=== PATIENT | male | born 1955 | race Caucasian/White ===

== ENCOUNTER 2016-04-10 12:10 | Inpatient (IN) | payer MEDICARE, OTHER ==
[2016-04-10] VITALS (8 sets, daily range): BP systolic 114–137; BP diastolic 46–67; PULSE 68–108; RESP 17–24; O2SAT 93–100
[~2016-04-10] VITALS: Ht 170.2 cm; Wt 110.7 kg
[~2016-04-10 12:10] MED LIST: ALBU8.5H2 INHALATION; ALPR1TAB7 PO; ASPI81TA3 PO; ATOR80TA PO; BUPR-97 PO; CARB-89 PO; CEPH500C; CILO100T2 PO; FINA5TAB9 PO; FLUT12AE4 IH; FRSM80T PO; GABA-502 PO; INSU100V2 SUBQ; INSU100V7 SUBQ; ISOS30TA4 PO; METO25TA99 PO; NITR0.4T SL; OXYC-465 PO; SEVE800T7 PO; TERA5CAP6 PO; TICA90TA PO
--- NOTE | 2016-04-10 12:21 | ED.REPORT ---
HPI-Chest Pain 40 and Over Date of Service Apr 10, 2016 ED Provider: Anup Tan MD This is 61 year old male with a history of CHF, COPD, CAD, DM, hyperlipidemia, ESRD on hemodialysis, HTN, s/p cardiac stenting 8x presenting to the emergency department from his dialysis appointment due to substernal chest pain that began 2 hours ago. Pain radiates to R arm. Took 2 nitro which did not provide relief. Denies nausea, vomiting, lightheadedness, dizziness, dyspnea, or diaphoresis. Nursing Notes Stated Complaint: CHEST PAIN Chief Complaint: Dysrhythmia/Cardiac Nursing Notes Reviewed: Yes Allergies: Coded Allergies: insulin regular (Verified Allergy, Severe, ITCHING, RASH,SWELLING, ) petrolatum,white (Verified Allergy, Severe, RASH, 12/10/15) diphenhydramine (Verified Allergy, Mild, Agitation, 12/04/15) Latex, Natural Rubber (Verified Allergy, Unknown, 12/04/15) chocolate flavor (Verified Allergy, Unknown, 12/04/15) Chocolate - all chocolate soap (Verified Allergy, Unknown, 12/04/15) spironolactone (Verified Allergy, Unknown, 12/04/15) RADHA Inhibitors (Verified Adverse Reaction, Severe, Cough, 12/10/15) codeine (Verified Adverse Reaction, Severe, GI, 12/10/15) chlorhexidine (Verified Adverse Reaction, Intermediate, pt reported itching with chlorhexidine use, 12/04/15) clopidogrel (Verified Adverse Reaction, Unknown, Kidney Bleed?, 12/10/15) Scheduled Aspirin Chew (Aspirin Chew) 81 Mg Chew 81 MG PO DAILY Atorvastatin (Lipitor) 80 Mg Tablet 80 MG PO HS Bupropion ER (Wellbutrin XL) 150 Mg Tab.er.24h 150 MG PO BID Carbamazepine ER (Carbamazepine ER) 200 Mg Tablet 200 MG PO HS Fexofenadine (Fexofenadine) 180 Mg Tablet 180 MG PO DAILY Finasteride (Finasteride) 5 Mg Tablet 5 MG PO DAILY Fluticasone/Salmeterol (Advair Hfa 115-21 Mcg Inhaler) 12 Gm Hfa.aer.ad 2 PUFF IH BID Furosemide (Furosemide) 80 Mg Tab 160 MG PO BIDWM Gabapentin (Gabapentin) 300 Mg Capsule 600 MG PO DAILY Insulin Glargine (Lantus U100 Insulin Vial) 100 Unit/Ml Vial 45-60 UNIT SUBQ BID Isosorbide MN ER (Isosorbide MN ER) 60 Mg Tab.er.24h 60 MG PO QAM Metoprolol Succinate ER (Metoprolol Succinate ER) 25 Mg Tab.er.24h 25 MG PO BID Prasugrel HCl (Effient) 10 Mg Tablet 10 MG PO DAILY Sevelamer Carbonate (Renvela) 800 Mg Tablet 2,400-3,200 TAB PO TID With meals and with snack Tamsulosin ER (Tamsulosin ER) 0.4 Mg Cap.er.24h 0.4 MG PO DAILY Scheduled PRN Albuterol HFA (Proair HFA) 8.5 Gm Hfa.aer.ad 2 PUFFS INHALATION PRN For Shortness of Breath Alprazolam (Alprazolam) 1 Mg Tablet 1-2 MG PO prn PRN PRN For Anxiety take 1/2 hour before hemodialysis Insulin Glulisine (Apidra U100 Insulin Vial) 100 Unit/1 Ml Vial 30-45 UNIT SUBQ QID PRN PRN hyperglycemia Midodrine (Midodrine) 10 Mg Tablet 10 MG PO DIRECTED PRN PRN dialysis Nitroglycerin SL (Nitrostat) 0.4 Mg Tab.subl 0.4 MG SL Q5MIN PRN PRN For Chest Pain oxyCODONE-Acetaminophen 7.5-325 mg (oxyCODONE-Acetaminophen 7.5-325 mg) 1 Each Tablet 1 TAB PO Q4H PRN PRN For Pain General Time Seen by MD: 12:16 Chief Complaint Other Hx Obtained From: Patient Arrived By: Walk-in Sudden in Onset?: Yes Onset Occurred: Just prior to arrival Symptom Duration: Since onset Severity: Current: Mild Pertinent Negative: Pt denies other symptoms Recent Healthcare: No recent doctor visit, No recent hospitalization Similar Sx Previous: No Past Medical History Past Medical History Notes: Patient identified to have 4 vessel coronary disease and cardiac catheterization at [facility], referred to private [facility] for intervention, but felt to be too high risk, underwent medical therapy and patient requires multiple stents, records requested Past Medical History Nonhealing foot wound. ESRD on Hemodialysis (, , Thu). History of retroperitoneal hematoma. Obesity. Recurrent UTI. chronic venostasis changes BPH peripheral vascular disease anemia of chronic disease recurrent LLE cellulitis chronic lymphodemea scarring on bilateral LE secondary to bobby anxiety diabetic neuropathy, mephropathy, retinopathy Reports: COPD, Congestive heart failure, Coronary artery disease, Diabetes mellitus, Hyperlipidemia, Hypertension Past Surgical History Stenting in July 2015 at [facility] - pt reports 5x stents Right superficial femoral artery stenosis treated with balloon angioplasty and left external iliac stenosis treated with stenting April 2013 Left fistula placement Left toe amputation Smoking History Former Smoker Social History Alcohol Use: Denies alcohol use Drug Use: Denies drug use Other Social History: Good social support, , Local resident Occupation on full disability Ambulatory Status Independent Review of Systems Constitutional: Denies: Chills, Fever Respiratory: Denies: Shortness of breath Cardiovascular: Reports: Chest pain GI: Denies: Abdominal pain, Constipation, Diarrhea, Nausea, Vomiting Neurologic: Denies: Headache Complete sys rev & neg: except as marked. Physical Exam Initial Vital Signs Vital Signs (First) Date Time Temp Pulse Resp B/P Pulse Ox O2 Delivery O2 Flow Rate FiO2 04/10/16 12:11 36.9 108 18 114/58 Room Air 04/10/16 15:16 94 2 Initial VS: Reviewed Head / Eyes: Atraumatic, Normocephalic, PERRL ENT: Mucous membranes moist, Conjunctiva normal, No scleral icterus Neck: Supple, Non-tender, Full range of motion Extremities: Vascular intact, Neuro intact, No swelling, No tenderness Skin: Warm, Dry, No cyanosis Neurologic: Alert, Oriented, Nonfocal Psychiatric: Mood/affect normal, Behavior normal, Normal thought content General/Constitutional: Awake, Alert Respiratory / Chest: Breath sounds NL, Breath sounds = bilat, No respiratory distress, No rales, No rhonchi, No wheezing, No stridor, No chest tenderness Heart Rate / Rhythm: Positive: Irregular rhythm, Tachycardia Heart Sounds / Murmur: Positive: Murmur present... Abdomen: Soft, Non-tender, McBurney's non-tender, No guarding, No rebound, BS normoactive, No distention, No hernia, No palpable mass Interpretation & Diagnostics Lab Results Interpretation Result Diagram: 04/10/16 1300 04/10/16 1300 Test 04/10/16 13:00 White Blood Count 7.8th/mm3 (3.8-10.1) Red Blood Count 3.81mil/mm3 (4.40-5.80) Hemoglobin 12.2g/dL (13.8-17.2) Hematocrit 37.4% (41.0-50.0) Mean Corpuscular Volume 98.2fL (81-100) Mean Corpuscular Hemoglobin 32.0pg (27.0-35.0) Mean Corpuscular Hemoglobin Concent 32.6% (32.0-37.0) Red Cell Distribution Width 16.2% (12.3-15.4) Platelet Count 131bil/L (150-400) Neutrophils (%) (Auto) 76.1% (40-74) Lymphocytes (%) (Auto) 9.8% (14-46) Monocytes (%) (Auto) 11.9% (4-12) Eosinophils (%) (Auto) 1.5% (0-5) Basophils (%) (Auto) 0.4% (0-3) Prothrombin Time 11.0sec (8.1-12.5) Prothromb Time International Ratio 1.03ratio Activated Partial Thromboplast Time 30.5sec (22.8-33.0) Sodium Level 131mEq/L (134-144) Potassium Level 3.6mEq/L (3.5-5.2) Chloride Level 88mEq/L (97-108) Carbon Dioxide Level 30mmol/L (18-29) Blood Urea Nitrogen 24mg/dL (8-27) Creatinine 5.35mg/dL (0.76-1.27) Estimat Glomerular Filtration Rate 12mL/min (>59) Glucose Level 163mg/dL (60-99) Calcium Level 9.2mg/dL (8.5-10.1) Magnesium Level 1.9mg/dL (1.6-2.6) Total Bilirubin 0.5mg/dL (0.0-1.2) Aspartate Amino Transf (AST/SGOT) 54U/L (0-50) Alanine Aminotransferase (ALT/SGPT) 24U/L (0-44) Alkaline Phosphatase 139U/L (25-160) Total Creatine Kinase 167U/L (21-232) Creatine Kinase MB 12.4ng/mL (0.0-10.4) Creatine Kinase MB % 7.4% (0.0-5.0) Troponin T 3.43ug/L (0.0-0.011) Pro-B-Type Natriuretic Peptide 11986ig/mL (0-210) Total Protein 8.3g/dL (6.4-8.4) Albumin 4.0g/dL (3.4-5.0) Thyroid Stimulating Hormone (TSH) 1.980uIU/mL (0.450-4.500) Hold [place]rbano Top Tube Received (Received) ECG Interpretation ECG Interpretation: A-fib at a rate of 112, new ST depression in lead 1, unchanged from prior on 12/11/2015 Time: 12:28 Interpreted by: ED physician X-Ray Chest Interpretation Chest Xray Interpretation: IMPRESSION: Expiratory chest demonstrating no definite acute cardiopulmonary process. Dictated by: Ant MCCLAIN Interpreted: Joanna Gomez MD on 04/10/2016 at 14:36 Transcribed by: CHELSIE on 04/10/2016 at 14:36 Re-Eval/Medical Decision Med Decision/Clinical Course 61-year-old male long history of CAD, stage renal disease on dialysis presenting with sudden onset chest pain during dialysis. No other associated symptoms. He reports this feels like his OK. EKG showed questionable ST elevation in inferior lead 3 and with depressions in lateral leads. The depressions in the lateral leads are old. The inferior elevation is new. Cardiology Dr. Marc was consulted emergently recommended heparin drip. Troponins 3. Admitted for NSTEMI. Patient requests to be transferred to after admission where he was last cathed. Hospitalist is working on transfer. Time of Eval: 14:06 Re-Evaluation/Progress Note: Discussed lab and imaging results and need for admission, all questions addressed Consultation #1: Referral / Consult Name: Paolo Marc MD Consulted With: Cardiology Call Returned at: 14:28 Rod Welder: Will see patient Consultation #2: Referral / Consult Name: Mayur Cedeño MD Consulted With: Hospitalist Call Returned at: 15:02 Rod Welder: Accepts admit Counseled Regarding: Diagnosis, Lab results, Need for follow-up, Need for admission Discharge & Departure Primary Impression: NSTEMI (non-ST elevated myocardial infarction) Disposition: ADMITTED TO HOSPITAL Discharge Condition All VS Reviewed: Yes Condition: Stable Referrals: Ld Arroyo MD (PCP) Crit Care Except Billable Proc Time Spent: 30-74 minutes Services Performed: Patient management by me, Time spent at bedside, Reviewing test results, Reviewing imaging, Discussing patient care, Documentation in record, Time with fam/surrogate Scribe Attestation Portions of this note were transcribed by Jeannie Crook. I, Dr. Tan personally performed the history, physical exam and medical decision-making; I reviewed and confirmed the accuracy of the information in the transcribed note. Signed by: priya Wu. 04/10/2016, 15:00. Anup Tan MD Apr 10, 2016 12:21 JEANNIE CROOK Apr 10, 2016 12:27
[2016-04-10] MEDS ORDERED: MeTOProlol 1 mg/mL 5 mL Inj IVPUSH PRN (12:30)
[2016-04-10 13:13] LABS: BASOPHILS % (AUTO) 0.4 % (0-3); EOSINOPHILS % (AUTO) 1.5 % (0-5); MONOCYTES % (AUTO) 11.9 % (4-12); Mean Corpuscular Volume 98.2 fL (81-100); NEUTROPHILS % (AUTO) 76.1 % (40-74); Platelet Count 131 bil/L (150-400)
[2016-04-10 13:33] LABS: INR 1.03 ratio
[2016-04-10 13:51] LABS: Magnesium 1.9 mg/dL (1.6-2.6)
[2016-04-10 13:56] LABS: TROPONIN T 3.43 ug/L (0.0-0.011)
[2016-04-10] MEDS ORDERED: Heparin 5,000 Unit/mL Inj IVPUSH ONE (14:20)
[2016-04-10] MEDS ORDERED: Heparin 25K Unit/500mL 0.45 NS 25,000 UNIT in IV Premix 1 EACH IV ONE (14:20)
--- NOTE | 2016-04-10 14:37 | DRSVH ---
PROCEDURE: X-RAY CHEST ONE VIEW, PORTABLE ([id number]) INDICATIONS: chest pain TECHNIQUE: One view of the chest was acquired. COMPARISON: [facility], CR, XR CHEST 1VW (PORTABLE), 12/11/2015, 15:09. FINDINGS: Surgical changes and devices: None. Lungs and pleura: No pleural effusions or pneumothorax. Lungs are clear. Mediastinum: Mediastinal contours appear normal. Heart size is normal. Bones and chest wall: No suspicious bony lesions. Overlying soft tissues appear unremarkable. IMPRESSION: Expiratory chest demonstrating no definite acute cardiopulmonary process. Dictated by: Ant Diamond RRA Interpreted: Joanna Gomez MD on 04/10/2016 at 14:36 Transcribed by: CHELSIE on 04/10/2016 at 14:36 Approved by: Joanna Gomez MD, PhD on 04/10/2016 at 16:58
[2016-04-10] MEDS ORDERED: 0.9% Sodium Chloride 1,000 ML IV SCH (15:03)
[2016-04-10] MEDS ORDERED: Renal Dosing Per Pharmacist XX ONE (15:05)
[2016-04-10] MEDS ORDERED: Polyethylene Glycol (PEG) 17 Gm Powder PO PRN (15:05)
[2016-04-10] MEDS ORDERED: Ondansetron 2 mg/mL 2 mL Inj IVPUSH PRN (15:05)
[2016-04-10] MEDS ORDERED: Alum-Mag Hydrox-Simeth 30 mL Suspension PO PRN (15:05)
[2016-04-10] MEDS ORDERED: Senna-Docusate 8.6-50 mg Tablet PO PRN (15:05)
[2016-04-10] MEDS ORDERED: FRSM80T PO (15:36)
[2016-04-10] MEDS ORDERED: PRAS10TA5 PO (15:36)
[2016-04-10] MEDS ORDERED: ISOS60TA2 PO (15:38)
[2016-04-10] MEDS ORDERED: TAMS0.4C29 PO (15:42)
[2016-04-10] MEDS ORDERED: MIDO10TA PO (15:42)
[2016-04-10] MEDS ORDERED: FEXO-106 PO (15:45)
[2016-04-10] MEDS ORDERED: CHOL100045 PO (15:45)
[2016-04-10] MEDS ORDERED: DOCU-41 PO (15:45)
--- NOTE | 2016-04-10 16:43 | DRSVH ---
[facility] [address] [place] [address] Echocardiogram Report Name: WES JETT EStudy Date: 03/2016 Height: 67 in Hospital Exam Location: [facility] Weight: 241 lb Gender: Male BSA: 2.2 m2 : 1955 Age: 61 yrs BP: 114/58 mmHg Reason For Study: CHEST PAIN Ordering Physician: Performed By: Rigoberto Posey Interpretation Summary Left ventricular wall thickness is mildly increased. Left ventricular ejection fraction is estimated to be 35 +/- 5%. Sever inefrior, inferolateral and posterior hypokinesis. Compared to the prior exam, left ventricular function is significantly decreased. There is mild mitral regurgitation. There is mild aortic stenosis. The right ventricular systolic pressure is estimated at 36 mmHg assuming a right atrial pressure of 8 mm Hg. Procedure: A two-dimensional transthoracic echocardiogram with color flow and Doppler was performed. The study quality was technically adequate. Comparison is made with the echocardiogram of 12/04/15. A contrast injection of Definity was performed to improve assessment of LV function. The patient was in normal sinus rhythm during the exam. Left Ventricle: The left ventricle is normal in size. Left ventricular wall thickness is mildly increased. There is no thrombus. Left ventricular ejection fraction is estimated to be 35 +/- 5%. Compared to the prior exam, left ventricular function is significantly decreased. Sever inefrior, inferolateral and posterior hypokinesis. Right Ventricle: The right ventricle is normal in size and function. Atria: The left atrium is severely dilated. Right atrial size is normal. The interatrial septum is intact with no evidence for an atrial septal defect. Mitral Valve: There is moderate mitral annular calcification. The mitral valve leaflets are mildly calcified. The mitral valve chordae are thickened and/or calcified. The mitral papillary muscle appears thickened and/or calcified. The mean pressure gradient of the mitral valve is 3.3 mmHg. There is mild mitral regurgitation. Aortic Valve: The aortic valve is trileaflet. The aortic valve is mildly calcified. Leaflet mobility is mildly reduced. The peak aortic velocity is 2.2 m/sec. The aortic valve mean gradient is 10.4 mmHg. The calculated aortic valve area is 2.0 cm2. The aortic valve area is 1.6 centimeters squared by planimetry. There is mild aortic stenosis. No aortic regurgitation is present. Tricuspid Valve: The tricuspid valve is normal in structure and function. There is trace tricuspid regurgitation. The right ventricular systolic pressure is estimated at 36 mmHg assuming a right atrial pressure of 8 mm Hg. Pulmonic Valve: The pulmonic valve is not well seen, but is grossly normal. There is no pulmonic valvular regurgitation. Great Vessels: The aortic root is normal size. The dimensions of the ascending aorta are normal. The pulmonary artery is normal size. The IVC is dilated (diameter is greater than 2.1 cm) yet it collapses greater than 50% with a sniff. This suggests a right atrial pressure of 8 mm Hg. Pericardium/ Pleura There is no pericardial effusion. There is no pleural effusion. MMode/2D Measurements & Calculations LVIDd: 5.3 cm LA dimension RA long axis: 4.7 cm LVOT diam: 2.1 cm LVIDs: 4.3 cm AoV Openin.93 cm FS: 19.4 % LA A2 area RA area: 20.1 cm Ao root diam: 3.4 cm EPSS: 1.4 cm RA vol: 72.2 ml Aortic Jxn: 2.8 cm IVSd: 1.3 cm RA : 33.0 ml/m2 asc Aorta Diam: 3.1 cm LVPWd: 0.89 cmLA A4 area LA length (vol) LA vol: 113.0 ml LA vol index IVC diam: 2.5 cm EDV(MOD-sp2) ERIC (plan) LV bledsoe. diameter/BSA LV sys. diameter/BSA : 180.5 ml : 1.6 cm2 (cm/m^2): 2.4 (cm/m^2): 1.9 RVD1 (basal) RVD2 (mid) : 3.4 cm Doppler Measurements & Calculations Ao V2 max MV E max terry MV E/A: 1.4 TR max terry : 220.8 cm/sec : 139.8 cm/sec Med Peak E' Terry : 262.9 cm/sec Ao max PG MV A max terry TR max PG : 19.5 mmHg : 99.6 cm/sec E/E' med: 35.0 : 27.7 mmHg Ao mean PG MV P1/2t: 64.4 msec Lat Peak E' Terry PA V2 max : 10.4 mmHg MVA(VTI): 2.7 cm2 : 103.1 cm/sec LVOT Max Terry E/E' lat: 24.2 PA mean PG : 117.7 cm/sec E/e' average: 29.6 ERIC(I,D): 2.0 cm Pulm A Revs Dur PA Accel Time sev ratio : 0.12 sec MV A dur: 0.15 sec MV V2 mean MV P1/2t max terry Ao V2 mean LV V1 max PG : 85.3 cm/sec : 152.7 cm/sec MV mean PG MVA(P1/2t): 3.4 cm2 Ao V2 VTI: 44.0 cm LV V1 VTI ERIC(V,D): 1.8 cm2 : 25.3 cm MV V2 VTI MV dec time : 0.22 sec PA V2 mean ERIC indexed to BSA Pulm A Revs Dur - MV : 79.2 cm/sec (cm^2/m^2): 0.89 A Dur: -0.07 msec PA pr(Accel) : 24.1 mmHg Electronically signed by: Paolo Marc on Reading Physician:04/10/2016 04:43 PM
[2016-04-10] MEDS: Sodium Chloride LOK Flush 10 mL Syringe IVFLUSH SCH (17:09)
--- NOTE | 2016-04-10 18:03 | PCM.CHPCAR ---
Consult Subjective Date of service Apr 10, 2016 Date of admit Provider Requesting Consult Primary Care Physician Primary Care Provider: Ld Arroyo MD Chief Complaint Chest Pain History of Present Illness Mr. Coy is a 61 year old male with significant PMH of CAD (s/p 8 stent placements), NSTEMI, ESRD on HD, HR-amalfwl-kzswcqnyn, HTN, HLD COPD, and severe PAD. Presents to ED from dialysis where he was reportedly completing his HD treatment when he developed CP was initially located in the substernal region with radiation to right arm. Pt took nitro x 2 with no relief. Denies N/V , dizziness, SOB, or diaphoresis. Patient was admitted for the same in November 2015 and discharged without any cardiac intervention with medical management. Patient states he is scheduled additional intervention procedures via vascular surgery and cardiology continued where he is currently being seen and would like to be transferred to and not admitted to [facility]. Patient was last seen by [facility] cardiology on 02/08/2016, was continued on current medications included Effient and was still awaiting an appointment with you do vascular surgery. Of note patient had a STEMI in June 2015 and transferred to [facility] for CABG however declined as he was thought to be high risk. Patient currently has RALEIGH to left main, bare-metal stent to distal LAD, RALEIGH to mid LAD, RALEIGH to proximal LAD, balloon angioplasty to the ramus intermedius, balloon angioplasty of the left circumflex, RALEIGH to RCA. EKG showed ST segment depression with downsloping in anterior lateral leads which is suggestive of previous MD. Echo showed EF 35% which is significantly decreased from echo done 11/29/2015 EF of 55-60%. Overall left ventricular function significantly decreased from prior study. Patient also has severe inferior, inferior lateral posterior hypokinesis. A. fib. Past medical history: #CAD, multiple stents, NSTEMI #End-stage renal disease - dialysis #Peripheral vascular disease #COPD #Chronic anemia #Diabetes mellitus, diabetic nephropathy, retinopathy, neuropathy. #CHF #Hyperlipidemia #Hypertension Past Surgical History: #Multiple AP cardio coronary stents (see history of present illness above) #Left external iliac stenosis, stented April 2013 #Fistula left arm #Left toe amputation Family History: Father - age 44, his lung cancer, pulmonary embolism, blood clots. Mother -diabetes mellitus Sister - age 54, pulmonary embolism. Brother (younger) - age 22 CVA, complications of thrombotic disease. Social history: A history of tobacco abuse. , lives locally Unemployed secondary to permanent disability. Review of Systems Review of Systems REVIEW OF SYSTEMS Patient initially asleep at time of interview, somewhat somnolent and slow to answer questions secondary to recent morphine administration. Constitutional: Denies Chills, Fever Eyes: Denies visual changes, denies headache Cardiovascular: Denies current Chest Pain, denies irregular heart rate. Endorses shortness of breath on exertion, shortness of breath while lying flat and lower extremity edema. Respiratory: Denies Cough, Wheezing Gastrointestinal: Denies Abdominal Pain, Constipation, Diarrhea, Heartburn, Nausea, Vomiting PMH Past Medical History Nonhealing foot wound. ESRD on Hemodialysis (, , Thu). History of retroperitoneal hematoma. Obesity. Recurrent UTI. chronic venostasis changes BPH peripheral vascular disease anemia of chronic disease recurrent LLE cellulitis chronic lymphodemea scarring on bilateral LE secondary to bobby anxiety diabetic neuropathy, mephropathy, retinopathy Reports: COPD, Congestive heart failure, Coronary artery disease, Diabetes mellitus, Hyperlipidemia, Hypertension Past Surgical History Stenting in July 2015 at [facility] - pt reports 8x stents Right superficial femoral artery stenosis treated with balloon angioplasty and left external iliac stenosis treated with stenting April 2013 Left fistula placement Left toe amputation Scheduled Aspirin Chew (Aspirin Chew) 81 Mg Chew 81 MG PO DAILY (Reported) Atorvastatin (Lipitor) 80 Mg Tablet 80 MG PO HS (Reported) Bupropion ER (Wellbutrin XL) 150 Mg Tab.er.24h 150 MG PO BID (Reported) Carbamazepine ER (Carbamazepine ER) 200 Mg Tablet 200 MG PO HS (Reported) Fexofenadine (Fexofenadine) 180 Mg Tablet 180 MG PO DAILY (Reported) Finasteride (Finasteride) 5 Mg Tablet 5 MG PO DAILY (Reported) Fluticasone/Salmeterol (Advair Hfa 115-21 Mcg Inhaler) 12 Gm Hfa.aer.ad 2 PUFF IH BID (Reported) Furosemide (Furosemide) 80 Mg Tab 160 MG PO BIDWM (Reported) Gabapentin (Gabapentin) 300 Mg Capsule 600 MG PO DAILY (Reported) Insulin Glargine (Lantus U100 Insulin Vial) 100 Unit/Ml Vial 45-60 UNIT SUBQ BID (Reported) Isosorbide MN ER (Isosorbide MN ER) 60 Mg Tab.er.24h 60 MG PO QAM (Reported) Metoprolol Succinate ER (Metoprolol Succinate ER) 25 Mg Tab.er.24h 25 MG PO BID (Reported) Prasugrel HCl (Effient) 10 Mg Tablet 10 MG PO DAILY (Reported) Sevelamer Carbonate (Renvela) 800 Mg Tablet 2,400-3,200 TAB PO TID (Reported) With meals and with snack Tamsulosin ER (Tamsulosin ER) 0.4 Mg Cap.er.24h 0.4 MG PO DAILY (Reported) Scheduled PRN Albuterol HFA (Proair HFA) 8.5 Gm Hfa.aer.ad 2 PUFFS INHALATION PRN For Shortness of Breath (Reported) Alprazolam (Alprazolam) 1 Mg Tablet 1-2 MG PO prn PRN PRN For Anxiety (Reported ) take 1/2 hour before hemodialysis Betamethasone Dipropionate (Betamethasone Dipropionate) 15 Gm Cream..g. 1 APPLIC TOPICAL PRN For Itching (Reported) Clobetasol Propionate (Clobetasol Propionate) 15 Gm Cream..g. 1 APPLIC TOPICAL PRN For Itching (Reported) Insulin Glulisine (Apidra U100 Insulin Vial) 100 Unit/1 Ml Vial 30-45 UNIT SUBQ QID PRN PRN hyperglycemia (Reported) Midodrine (Midodrine) 10 Mg Tablet 10 MG PO DIRECTED PRN PRN dialysis ( Reported) Nitroglycerin SL (Nitrostat) 0.4 Mg Tab.subl 0.4 MG SL Q5MIN PRN PRN For Chest Pain (Reported) oxyCODONE-Acetaminophen 7.5-325 mg (oxyCODONE-Acetaminophen 7.5-325 mg) 1 Each Tablet 1 TAB PO Q4H PRN PRN For Pain (Reported) Discontinued Medications Cephalexin (Cephalexin) 500 Mg Capsule (Reported) Cholecalciferol (Vitamin D3) (Vitamin D) 1,000 Unit Capsule 1,000 UNIT PO DAILY (Reported) Cilostazol (Cilostazol) 100 Mg Tablet 50 MG PO BID Docusate Sodium (Colace) 100 Mg Capsule 100 MG PO DAILY (Reported) Isosorbide MN ER (Isosorbide MN ER) 30 Mg Tab.er.24h 30 MG PO 0730 Terazosin (Terazosin) 5 Mg Capsule 5 MG PO DAILY (Reported) Ticagrelor (Brilinta) 90 Mg Tablet 90 MG PO BID (Reported) Current Inpatient Medications Current Medications Metoprolol Tartrate 5 mg Q5MIN PRN IVPUSH Last administered on 04/10/16t 13:05; Admin Dose 5 MG; Start 04/10/16 at 12:30 Morphine Sulfate UP TO 10 mg IV in a 4 h... Q15MIN PRN IVPUSH; Start 04/10/16 at 12:30; Stop 04/11/16 at 12:31 Sodium Chloride 10 ml 10 ml CLAUDIA IVFLUSH; Start 04/10/16 at 16:30; Status UNV Sodium Chloride 1,000 ml @ 80 mls/hr [id number] IV; Start 04/10/16 at 15:03; Status UNV Aspirin 81 mg DAILY PO; Start 04/11/16 at 08:30; Status UNV Metoprolol Tartrate 25 mg Q6 PO; Start 04/10/16 at 20:30; Status UNV Al Hydrox/Mg Hydrox/Simethicone 30 ml Q6 PRN PO; Start 04/10/16 at 15:05; Status UNV Ondansetron HCl 4-8 mg prn nausea Q4 PRN IVPUSH; Start 04/10/16 at 15:05; Status UNV Senna 1 tablet BID PRN PO; Start 04/10/16 at 15:05; Status UNV Polyethylene Glycol 17 gm DAILY PRN PO; Start 04/10/16 at 15:05; Status UNV Acetaminophen 325 mg Q6 PRN PO; Start 04/10/16 at 15:05; Status UNV Nitroglycerin 0.4 mg Q5MIN PRN SL; Start 04/10/16 at 15:05; Status UNV Morphine Sulfate 1-5 mg prn pain not relie... Q5M PRN IVPUSH; Start 04/10/16 at 15:05; Status UNV Allergies: Coded Allergies: insulin regular (Verified Allergy, Severe, ITCHING, RASH,SWELLING, ) petrolatum,white (Verified Allergy, Severe, RASH, 12/10/15) diphenhydramine (Verified Allergy, Mild, Agitation, 12/04/15) Latex, Natural Rubber (Verified Allergy, Unknown, 12/04/15) chocolate flavor (Verified Allergy, Unknown, 12/04/15) Chocolate - all chocolate soap (Verified Allergy, Unknown, 12/04/15) spironolactone (Verified Allergy, Unknown, 12/04/15) RADHA Inhibitors (Verified Adverse Reaction, Severe, Cough, 12/10/15) codeine (Verified Adverse Reaction, Severe, GI, 12/10/15) chlorhexidine (Verified Adverse Reaction, Intermediate, pt reported itching with chlorhexidine use, 12/04/15) clopidogrel (Verified Adverse Reaction, Unknown, Kidney Bleed?, 12/10/15) Social History Hx Alcohol Use: NoHx Substance Use: NoHx Tobacco Use: Yes (used to smoke 2- 3pk/d, for 20yrs, quit ) Smoking Status: Former Smoker Exam Vital Signs Vital Sign - Last Date Time Temp Pulse Resp B/P Pulse Ox O2 Delivery O2 Flow Rate FiO2 04/10/16 15:16 75 17 115/46 94 Nasal Cannula 2 04/10/16 12:11 36.9 Objective General: Obese male laying in bed in no apparent distress, asleep at the time of interview, arousable to voice but very somnolent. HEENT: Normocephalic, atraumatic. External ears without defect. Pupils equal, round, and reactive to light and accommodation. Neck: No jugular venous distension, though difficult to appreciate secondary to body habitus. Cardiovascular: Regular rate and rhythm with no murmurs appreciate though difficult to appreciate secondary to ER background noise and body habitus. Pulmonary: Clear to auscultation bilaterally with no appreciable crackles, wheezes, or rhonchi. Normal respiratory effort with no use of accessory muscles. Abdomen: Soft, nontender, obese. Extremities: Marked edema in lower extremities bilaterally. Bilateral lower extremities with compression stockings though able to visualize poor circulation with pitting edema diffusely erythema mottled and cyanotic skin, bandages on bilateral feet. Neurological: Cranial nerves grossly intact. Psychiatric: Patient somnolent, arousable to voice. Able to answer questions appropriately though slow to respond. Lab and Diagnostics Result Diagram: 04/10/16 1300 04/10/16 1300 X-Rays, CTs and MRIs X-RAY CHEST ONE VIEW, PORTABLE IMPRESSION: Expiratory chest demonstrating no definite acute cardiopulmonary process. Additional Diagnostics: Echocardiogram: Interpretation Summary Left ventricular wall thickness is mildly increased. Left ventricular ejection fraction is estimated to be 35 +/- 5%. Sever inefrior, inferolateral and posterior hypokinesis. Compared to the prior exam, left ventricular function is significantly decreased. There is mild mitral regurgitation. There is mild aortic stenosis. The right ventricular systolic pressure is estimated at 36 mmHg assuming a right atrial pressure of 8 mm Hg. Assessment & Plan Assessment # NSTEMI, present on admission, ongoing. Patient has diagnosed severe coronary artery disease with multiple stent placements, with history of bilateral femoral artery occlusion which raises concern about vascular access for cardiac catheterization. Initial troponin in ED 3.43 with history of chronically elevated troponin most likely due to long-standing ischemic heart disease, CK- MB 12.4 and CK-MB% 7.4. EKG showed ST depression in anterolateral leads, no ST elevation, atrial fibrillation. Echo showed severely reduced left ventricular function. In ED patient received 300 mg Plavix, heparin, nitroglycerin and morphine - Continue medical management with cardiac heparin protocol, metoprolol 25 mg every 6, Prasugrel 10 mg daily, aspirin 81 mg daily - Patient indicated desire to transfer to [facility] for continued treatment as this is where he is followed - Consider ultrasound of the abdominal iliac vessels and lower extremities to determine the severity of his peripheral artery disease and possibility of achieving vascular access. - Continue to monitor CK-MB every 6 hours # CHF, systolic dysfunction. - Echo as above. - Continue to monitor fluid volume status, oxygenation - Continue to monitor CBC, consider ABGs # ESRD on dialysis, chronic. He reportedly receives dialysis Thursday. Prior to admission patient is states he did complete his dialysis treatment today. - Consider nephrology consult - Continue monitor electrolytes #. Diabetes mellitus, chronic. Presumed stable A1c pending - Home insulin + correctional scale utilized #. Hypertension, chronic. Presumed stable. Home meds include isosorbide mononitrate, furosemide - Patient's last vital signs 115/54 pulse rate 60 - Metoprolol as above - Consider restarting home meds based on hemodynamic and fluid status # Paroxysmal atrial fibrillation, chronicity unknown. Presumed stable -Telemetry - Metoprol as above # Peripheral artery disease - Lower extremity ultrasound as above # COPD, presumed stable - Duonebs QIDWA - Accunebs q2h prn Attending Statement Pt. seen and d/w resident. Complex CAD and PAD. Patient wishes to be transferred to [facility]. Medical team is organizing that. ZENON TILLMAN DO Apr 10, 2016 16:37 Paolo Marc MD Apr 11, 2016 16:42
--- NOTE | 2016-04-10 18:07 | PCM.HPMED ---
Subjective Date of Service Apr 10, 2016 Primary Provider: Admitting Physician: Mayur Cedeño MD Primary Care Physician: Ld Arroyo MD Attending Physician: Mayur Cedeño MD Chief Complaint: Chest Pain History of Present Illness: 61 year old male with a history of CHF, COPD, CAD, DM, hyperlipidemia, ESRD on hemodialysis, HTN, s/p cardiac stenting 8x presenting to the emergency department from his dialysis appointment due to substernal chest pain that began 2 hours ago. Pain radiates to R arm. Took 2 nitro which did not provide relief. Denies nausea, vomiting, lightheadedness, dizziness, dyspnea, or diaphoresis. Patient tells me that he started having some symptoms last night took a couple nitroglycerin. He took a couple more nitroglycerin this morning before he went to dialysis and felt a little bit better and went to dialysis then during dialysis he developed further symptoms. He states that it is retrosternal does not radiating were but similar to prior episodes. He does have dyspnea with exertion that has worsened in the last day or so. Would like to be transferred to and not admitted to [facility]. Patient was last seen by [facility] cardiology on 02/08/2016, was continued on current medications included Effient and was still awaiting an appointment with you do vascular surgery. Of note patient had a STEMI in June [address] [facility] for CABG however declined as he was thought to be high risk. Patient currently has RALEIGH to left main, bare-metal stent to distal LAD, RALEIGH to mid LAD, RALEIGH to proximal LAD, balloon angioplasty to the ramus intermedius, balloon angioplasty of the left circumflex, RALEIGH to RCA. EKG showed ST segment depression with downsloping in anterior lateral leads which is suggestive of previous MN. Echo showed EF 35% which is significantly decreased from echo done 11/29/2015 EF of 55-60%. Overall left ventricular function significantly decreased from prior study. Patient also has severe inferior, inferior lateral posterior hypokinesis. A. fib. . Review of Systems: Gen.: No fevers chills weight loss weight gain Eyes: no visual disturbances or blurring vision HEENT: No nose/throat drainage, no pain in ears or throat, no hearing loss Lymph: No lymph nodes noted Cardiac: no orthopnea, PND, palpitations , pedal edema or dyspnea on exertion worsening chest pain as described Pulmonary: no cough, wheezing or bringing up of sputum GI: No anorexia nausea vomiting blood or black in the stool : no dysuria hematuria urinary frequency or decrease in urine output Musculoskeletal: Joint swelling no joint pain no new muscle aches or back pain Neuro: No syncope, seizures no loss of consciousness no new focal weakness, numbness or tingling Psychiatric: New new anxiety insomnia or depression Endocrine: No new heat or cold intolerances polyuria or polydipsia Hematology: No lymphadenopathy or easy bleeding or bruising noted skin: No new rashes, stasis dermatitis Allergies Coded Allergies: insulin regular (Verified Allergy, Severe, ITCHING, RASH,SWELLING, ) petrolatum,white (Verified Allergy, Severe, RASH, 12/10/15) diphenhydramine (Verified Allergy, Mild, Agitation, 12/04/15) Latex, Natural Rubber (Verified Allergy, Unknown, 12/04/15) chocolate flavor (Verified Allergy, Unknown, 12/04/15) Chocolate - all chocolate soap (Verified Allergy, Unknown, 12/04/15) spironolactone (Verified Allergy, Unknown, 12/04/15) RADHA Inhibitors (Verified Adverse Reaction, Severe, Cough, 12/10/15) codeine (Verified Adverse Reaction, Severe, GI, 12/10/15) chlorhexidine (Verified Adverse Reaction, Intermediate, pt reported itching with chlorhexidine use, 12/04/15) clopidogrel (Verified Adverse Reaction, Unknown, Kidney Bleed?, 12/10/15) Home Medications Aspirin Chew (Aspirin Chew) 81 Mg Chew 81 MG PO DAILY Atorvastatin (Lipitor) 80 Mg Tablet 80 MG PO HS Bupropion ER (Wellbutrin XL) 150 Mg Tab.er.24h 150 MG PO BID Carbamazepine ER (Carbamazepine ER) 200 Mg Tablet 200 MG PO DAILY Cilostazol (Cilostazol) 100 Mg Tablet 50 MG PO BID Finasteride (Finasteride) 5 Mg Tablet 5 MG PO DAILY Fluticasone/Salmeterol (Advair Hfa 115-21 Mcg Inhaler) 12 Gm Hfa.aer.ad 2 PUFF IH BID Furosemide (Furosemide) 80 Mg Tab 80 MG PO BID Gabapentin (Gabapentin) 300 Mg Capsule 600 MG PO DAILY Insulin Glargine (Lantus U100 Insulin Vial) 100 Unit/Ml Vial 35 UNIT SUBQ BID Isosorbide MN ER (Isosorbide MN ER) 30 Mg Tab.er.24h 30 MG PO 0730 Metoprolol Succinate ER (Metoprolol Succinate ER) 25 Mg Tab.er.24h 25 MG PO DAILY Sevelamer Carbonate (Renvela) 800 Mg Tablet 3,200 TAB PO QID With meals and with snack Terazosin (Terazosin) 5 Mg Capsule 5 MG PO DAILY Ticagrelor (Brilinta) 90 Mg Tablet 90 MG PO BID Scheduled PRN Albuterol HFA (Proair HFA) 8.5 Gm Hfa.aer.ad 2 PUFFS INHALATION PRN For Shortness of Breath Alprazolam (Alprazolam) 1 Mg Tablet 1-2 MG PO prn PRN PRN For Anxiety take 1/2 hour before hemodialysis Insulin Glulisine (Apidra U100 Insulin Vial) 100 Unit/1 Ml Vial 20-40 UNIT SUBQ QID PRN PRN hyperglycemia Nitroglycerin SL (Nitrostat) 0.4 Mg Tab.subl 0.4 MG SL Q5MIN PRN PRN For Chest Pain oxyCODONE-Acetaminophen 7.5-325 mg (oxyCODONE-Acetaminophen 7.5-325 mg) 1 Each Tablet 1 TAB PO Q4H PRN PRN For Pain Miscellaneous Medications Cephalexin (Cephalexin) 500 Mg Capsule PMH #CAD, multiple stents, NSTEMI patient reports 8 stents since July 2015, 5 at [facility] and then 3 more most recently at [facility] #End-stage renal disease - dialysis #Peripheral vascular disease #COPD #Chronic anemia #Diabetes mellitus, diabetic nephropathy, retinopathy, neuropathy. #CHF #Hyperlipidemia #Hypertension Past Surgical History: #Multiple AP cardio coronary stents (see history of present illness above) #Left external iliac stenosis, stented April 2013 #Fistula left arm #Left toe amputation Family History: Father - age 44, his lung cancer, pulmonary embolism, blood clots. Mother -diabetes mellitus Sister - age 54, pulmonary embolism. Brother (younger) - age 22 CVA, complications of thrombotic disease. Social history: A history of tobacco abuse. , lives locally Unemployed secondary to permanent disability. Social History Hx Alcohol Use: No Hx Substance Use: No Hx Tobacco Use: Yes (used to smoke 2-3pk/d, for 20yrs, quit ) Smoking Status: Former Smoker Exam Vital Signs Vital Sign - Last Date Time Temp Pulse Resp B/P Pulse Ox O2 Delivery O2 Flow Rate FiO2 04/10/16 17:21 36.9 68 20 115/54 100 Room Air 2 Exam Gen.- A+ O 3 no apparent distress. Obese male lying in bed Eyes- open conjunctiva clear, pupils equal nonicteric Mouth- oral mucosa moist, no exudate, dentition is not great ENT- ears normal, nose normal Neck- supple/trach midline CVS- RRR no murmur or gallop Lungs- CTA, trace wheeze expiratory GI- NABS/NT soft Musc- moving 4 no obvious deformity, left arm graft pulsatile with bruit Neuro- cranial nerves II through XII intact to gross examination, nonfocal Skin- warm and dry, no rashes/lesions/wounds noted, bilateral stasis dermatitis up to at least be high calf Psych- pleasant and appropriate, Lab and Diagnostics Result Diagram: 04/10/16 1300 04/10/16 1300 Assessment & Plan 61-year-old male with an extensive cardiac history having ongoing chest pain concerning for acute event his troponin is elevated and his ejection fraction is markedly diminished versus last echocardiogram. Patient has been told by his director mobile at [facility] that he needs to be seen nowhere else so understandably he is asking for transfer. I have called the transfer center and there are no beds available they have recommended that we call back in the morning. I have told the patient that we need the name of his director mobile so that we can contact that physician directly and perhaps a bed may make itself available based on that physicians recommendations. NSTEMI ongoing chest pain-patient was seen by cardiology here, they have recommended catheterization, patient has declined opting for transfer to [facility]. Unfortunately the patient was transferred out of the emergency room and now is on the floor and we are trying to do a Hospital Hospital transfer which is as yet been less than successful. Hopefully his director mobile Dr. Wesley will be able to free up a bed for this patient becomes unstable and cannot transfer. CAD/HTN/Lipids-resume patient's outpatient meds IDDM-continue outpatient regimen ESRD on HD, needs dialysis Thursday, , Thursday not sure that he will still be here by the time he needs his next dialysis. Proph-DVT patient on a heparin drip dispo- full code from home At this point in time patient is requesting transfer reasonably to I was not able to call back the transfer center to make a second bed request mentioning his director mobile named , I would recommend doing this first thing in the morning. Patient is having ongoing chest pain despite ongoing morphine and nitroglycerin tabs. so in addition to his heparin drip we are starting a nitroglycerin drip Time spent 75min Mayur Cedeño MD Apr 10, 2016 18:07
[2016-04-10] MEDS ORDERED: MIDODRINE 10 MG PO PRN (18:35)
[2016-04-10] MEDS ORDERED: OXYCODONE ACETAMINOPHEN PO PRN (18:35)
[2016-04-10] MEDS ORDERED: INSULIN GLULISINE SUBQ PRN (18:35)
--- NOTE | 2016-04-10 19:05 | NUR ---
Admit to PCC Pt admitted to PCC room 2025. Arrived from ED by yusuf. Pt alert and oriented x3. CALDERA. Vitals WNL. Pt admitted for chest pain/nonstemi. Received 4 baby aspirin and nitro x2 in ED. Pt upon initial assessment denied chest pain. Pt states that he would prefer to transfer to [facility] were he has had his previous heart surgeries. Pt to provide his cadastral engineer's contact information to staff to make contact.
[2016-04-10] MEDS ORDERED: oxyCODONE-Acetamin 5-325 mg Tablet PO PRN (19:15)
[2016-04-10] MEDS ORDERED: Insulin LISPRO 300 Unit/3 mL Inj SUBQ PRN (19:15)
[2016-04-10] MEDS ORDERED: Glucose 40% Oral Gel 15 Gm Tube PO PRN (19:30)
[2016-04-10] MEDS ORDERED: Albuterol 2.5 mg/3 mL Inhalation Solution NEB PRN (20:00)
[2016-04-10] MEDS ORDERED: SALMETEROL IH SCH (20:30)
[2016-04-10] MEDS: Fluticasone-Salmererol 250-50 Inhaler INHALATION SCH (20:30)
[2016-04-10] MEDS ORDERED: Insulin GLARgine 100 Unit/mL Syringe SUBQ SCH (20:30)
[2016-04-10] MEDS ORDERED: [UNRECOGNIZED DRUG - OTHER] IH SCH (20:30)
[2016-04-10] MEDS ORDERED: FLUTICASONE IH SCH (20:30)
--- NOTE | 2016-04-10 20:49 | NUR ---
Noncompliance Pt refused advair disk, stating that he uses inhaler at home, not disk. Rn explained need to substitute. Pt then takes home inhaler despite finished cloth checker not to.
[2016-04-10] MEDS ORDERED: Non-Formulary Medication (Atorvastatin (Lipitor) 80 MG) PO SCH (21:00)
[2016-04-10] MEDS ORDERED: carBAMazepine 200 mg ER12 Tablet PO SCH (21:00)
[2016-04-10] MEDS: Insulin GLARgine 100 Unit/mL Syringe SUBQ SCH (21:09)
[2016-04-10] MEDS: buPROPion XL 150 mg ER24 Tablet PO SCH (21:15)
--- NOTE | 2016-04-10 21:22 | NUR ---
CP Pt began c/o central CP 3/10 pain. Pt takes out home nitro bottle. Pt states MD stated he could take home dose of nitro. RN instructed that this is not hospital policy and will need to take nurse administered doses only. Pt demands Nitro immediately, stating "you have 10 seconds". gives pt bottle. RN explains need for EKG before nitro. Pt takes his own nitro, despite education, at about 2053. Stat EKG ordered. 3 mg Morphine given per orders post EKG, pt states pain is reduced to a 2/10 immediately after morphine.
[2016-04-10] MEDS: Insulin LISPRO 300 Unit/3 mL Inj SUBQ SCH (22:00)
[2016-04-10] MEDS ORDERED: CLOB15CR2 TOPICAL (22:28)
[2016-04-10] MEDS ORDERED: BETA15CR3 TOPICAL (22:28)
--- NOTE | 2016-04-10 22:45 | NUR ---
Noncompliance with medications Pt alerted that RN attempting to get Renvela dose from pharmacy. Pt states he will just take from his home medication. Pt adviced that this is not hospital policy and that this introduces safety issues into pt care. Pt states "OK you did your job, now i just need to take my medication." Pt takes 3 white colored pills from home dose bottle.
[2016-04-10] MEDS ORDERED: Nitroglycerin 50 mg/250 mL D5W Premix IV SCH (23:25)
[2016-04-10] MEDS: MeTOProlol XL 25 mg ER24 Tablet PO SCH (23:29)
[2016-04-11] VITALS (10 sets, daily range): BP systolic 107–141; BP diastolic 52–73; PULSE 64–80; RESP 13–22; O2SAT 92–99
[2016-04-11] MEDS: Sodium Chloride LOK Flush 10 mL Syringe IVFLUSH SCH ×3 (00:30→16:30)
[2016-04-11] MEDS: Heparin 25K Unit/500mL 0.45 NS 25,000 UNIT in IV Premix 1 EACH IV SCH ×2 (01:04→23:34)
[2016-04-11 03:08] LABS: BASOPHILS % (AUTO) 0.4 % (0-3); EOSINOPHILS % (AUTO) 2.4 % (0-5); MONOCYTES % (AUTO) 10.8 % (4-12); Mean Corpuscular Hemoglobin 31.5 pg (27.0-35.0); Mean Corpuscular Volume 98.8 fL (81-100); NEUTROPHILS % (AUTO) 71.6 % (40-74); Platelet Count 147 bil/L (150-400)
--- NOTE | 2016-04-11 03:09 | NUR ---
Pain Meds At beginning of shift pt states he prefers Dilaudid over Morphine for pain. RN explains cardiac use of Morhpine rather than Dilaudid, jokingly states "We are trying to help out the heart, not just get you loopy." Pt states that hes ok with being "loopy". Pt mentions dilaudid multiple times throughout shift. Nitro gtt titrated for chest pain. At 0300 RN assesses for pain, pt states that he is chest pain free at this time. Stating no pain. Pt then states, "I am gonna need more of that morphine in about 20 minutes". RN states that "if your chest pain is gone, than there is no need for morphine." Pt states, "well I was counting on that morphine too."
[2016-04-11 04:01] LABS: TROPONIN T 3.56 ug/L (0.0-0.011)
[2016-04-11] MEDS: Insulin LISPRO 300 Unit/3 mL Inj SUBQ SCH ×4 (08:00→20:31)
[2016-04-11] MEDS: Fluticasone-Salmererol 250-50 Inhaler INHALATION SCH ×3 (08:16→19:42)
[2016-04-11] MEDS: buPROPion XL 150 mg ER24 Tablet PO SCH ×2 (08:19→19:43)
[2016-04-11] MEDS: MeTOProlol XL 25 mg ER24 Tablet PO SCH ×2 (08:19→19:42)
[2016-04-11] MEDS: Heparin 5,000 Unit/mL Inj IVPUSH PRN ×2 (08:20→14:37)
[2016-04-11] MEDS ORDERED: Isosorbide Mononitrate 60 mg ER24 Tablet PO SCH (08:30)
[2016-04-11] MEDS ORDERED: FEXOFENADINE 180 MG PO SCH (08:30)
[2016-04-11] MEDS: Insulin GLARgine 100 Unit/mL Syringe SUBQ SCH ×2 (10:06→20:30)
[2016-04-11] MEDS: HYDROmorphone 1 mg/mL Inj IVPUSH PRN ×3 (13:43→23:14)
--- NOTE | 2016-04-11 15:40 | PCM.PNMED ---
Subjective Date of Service Apr 11, 2016 Subjective He is doing better. No chest pains and this morning. No dyspnea. No abdominal pain nausea or vomiting. As explained that [facility] cannot accept him in transfer because they have no capacity today. Exam Vital Signs Vital Sign - Last Date Time Temp Pulse Resp B/P Pulse Ox O2 Delivery O2 Flow Rate FiO2 04/11/16 15:25 37.5 74 19 117/52 94 Room Air 04/11/16 12:00 2.00 Intake and Output 04/10/16 04/10/16 04/11/16 Cumulative From/Thru 15:00 23:00 07:00 04/10/16 12:11 - 04/11/16 06:19 Intake Total 240 ml 240 ml Output Total 0 ml 0 ml Balance 240 ml 240 ml Intake Oral 240 ml 240 ml Output Urine Total 0 ml 0 ml # Bowel Movements 0 0 Exam Alert oriented 3, no distress. Anicteric sclerae Lungs are clear with normal effort. Heart is regular without murmur Abdomen soft nontender Extremities are free of edema and good pedal pulses. IVs and Medications Medications Reviewed: Medications were reviewed in detail Lab and Diagnostics Result Diagram: 04/11/16 0300 04/11/16 0300 Assessment & Plan 61-year-old male with an extensive cardiac history having ongoing chest pain concerning for acute event his troponin is elevated and his ejection fraction is markedly diminished versus last echocardiogram. Patient has been told by his tetryl blender operator at [facility] that he needs to be seen nowhere else so understandably he is asking for transfer. I have called the transfer center and there are no beds available they have recommended that we call back in the morning. I have told the patient that we need the name of his tetryl blender operator so that we can contact that physician directly and perhaps a bed may make itself available based on that physicians recommendations. 1. NSTEMI , POA. The patient is improving clinically on medical therapy. We will stop the Nexium was interpreted continue heparin antiplatelet some beta- blockade. The patient will be seen by cardiology who was consulted at the time of admit. Transfer to [facility] on April 11, today is not feasible because they have no capacity. We will continue our current medical treatment and await further recommendations from cardiology. 2. End-stage renal disease. POA. The patient is dialyzed yesterday was seen by nephrology today. We will anticipate dialysis tomorrow either outpatient or inpatient. His clinical course. 3. CAD with a history of PCI 8. POA. Plan is as above. 4. Hypertension, essential. POA. Plan is as above. 5. DM 2. POA. No change to current medical regimen. This is controlled. Proph-DVT patient on a heparin drip Full code Pain Evaluation: Adequate Pain Control Resuscitation Status: CPR: Attempt Resuscitation Time spent 35 minutes Ruy Ford MD Apr 11, 2016 15:40
--- NOTE | 2016-04-11 15:42 | NUR ---
Social Work: Initial Assessment D: Per EMR review, pt is a 61 year old male admitted for NSTEMI. Pt is Medicare with for Life Supplement; pt has no LTC insurance and is [facility]. PCP is Ld Arroyo MD. NOK is Elle Coy, , . Readmit score is moderate, 5/8. DAY CARE ASSISTANT met with pt at bedside. Sw role explained and contact information provided. See initial assessment. Pt lives in [place] with his . Pt is I with ADLs and uses a walker for ambulation. Pt lives in a split level home with 9 [address] Pt does not drive and relies on his for transportation. Pt has never had HH or Skilled rehab. Pt states he has no concerns about discharge and is awaiting a transfer to for a cardiology workup. DAY CARE ASSISTANT spoke with MD at rounds. Cardiology is pursuing transfer for pt if a bed is available. A: Pt who is I at baseline and uses a walker. P: evolving; DAY CARE ASSISTANT to continue to follow pt's clinical course and follow up with discharge needs/planning. RAÚL Ryan Addendum: 04/11/16 at 1556 by JOO GRAVES Amended: Links added.
--- NOTE | 2016-04-11 17:20 | NUR ---
Pain/GTT/HNV Patient a/o x 4, c/o left chest wall squeezing type pain 3/10 Morphine given x 2 with min-mod effect, patient requesting Dilaudid for pain control, MD notified. Nitro gtt and Hep gtt infusing, VSS tele SR. Patient in bed all shift, HNV. O2 @ 2L while asleep for hx sleep apnea. Patient taking diet fair, plan for dialysis in a.m.
[2016-04-12] VITALS (10 sets, daily range): BP systolic 112–129; BP diastolic 62–81; PULSE 73–101; RESP 16–20; O2SAT 83–99
[2016-04-12] MEDS: Sodium Chloride LOK Flush 10 mL Syringe IVFLUSH SCH ×2 (00:30→08:30)
[2016-04-12] MEDS: HYDROmorphone 1 mg/mL Inj IVPUSH PRN ×3 (04:42→14:01)
--- NOTE | 2016-04-12 06:33 | NUR ---
Pain c/o CP 05/19 x3 this shift. Associated symptoms of SOB and nausea also noted x1 with CP. Patient noted to be moving with all reported episodes. Dilaudid administered and placed on 3L NC. CP resolved once at rest. Encouraged to limit activity and remain on bedrest while associated symptoms continue with exertion. Currently resting in bed without any complaints.
[2016-04-12] MEDS: Insulin LISPRO 300 Unit/3 mL Inj SUBQ SCH ×2 (08:00→12:00)
[2016-04-12 08:23] LABS: Mean Corpuscular Hemoglobin 31.6 pg (27.0-35.0); Mean Corpuscular Volume 99.4 fL (81-100)
[2016-04-12] MEDS: Fluticasone-Salmererol 250-50 Inhaler INHALATION SCH (08:30)
[2016-04-12] MEDS: Insulin GLARgine 100 Unit/mL Syringe SUBQ SCH (08:30)
[2016-04-12] MEDS ORDERED: carBAMazepine 200 mg ER12 Tablet PO SCH (08:30)
[2016-04-12] MEDS: Heparin 5,000 Unit/mL Inj IVPUSH PRN (09:29)
--- NOTE | 2016-04-12 09:42 | NUR ---
Pt arrived to [facility]: Pt arrived to [facility] for dialysis treatment. Pt is here for C/P and has had recent complaint up to this morning of chest pain. Medication given to pt at 0825 just prior to arrival for chest pain. Pt is on a heparin gtt currently and last ptt indicates that pt need bolus and increase in rate. 1000 unit bolus given and rate increased to 1600units/hr per protocol. Noted on lab work that troponin levels had been increasing prior to transfer to [facility] for dialysis, primary RN and MD aware, and repeat troponins are pending. Report obtained from Gera Douglas RN. Nurse reports that plan is to discharge pt after dialysis treatment but no official order has been written per report. Addendum: 04/12/16 at 1401 by VALARIE GENTILE RN Pt returned to [facility] after dialysis completed. Pt slept throughout most of treatment. Pt had no complaints to this RN, or to the bingo cashier Lynn, about having any chest pain but had apparently sent to [facility] for his home medication of nitro at the end of his dialysis treatment. never returned to [facility] with any medication. This was reported during pt transfer report back to [facility] by Gera Douglas RN. Gera Douglas RN aware of above note. Iddiction aware of pt return to unit.
--- NOTE | 2016-04-12 10:00 | CONS ---
[address] [address] CONSULTATION REPORT PATIENT: WES JETT : 1955 MR#: [id number] ADMIT: 04/10/2016 JOB ID: [id number] DATE OF SERVICE: 04/12/2016 RENAL CONSULTATION: HISTORY: The patient is a very pleasant 61-year-old white male who has a history of end-stage renal disease and multiple medical problems. He was admitted to [facility] for chest pain and renal consultation is being sought for management of his end-stage renal disease. The patient has a longstanding history of end-stage renal disease secondary to diabetes mellitus which has been complicated by peripheral neuropathy, retinopathy, peripheral vascular disease, and end-stage renal disease. He also has a history of hypertension with hypertensive heart disease and hypertensive nephrosclerosis. There is also an extensive cardiac history, and he has had a number of stents placed in his coronary arteries for several previous myocardial infarctions and a history of congestive heart failure. He states that on the day of admission prior to dialysis, he had several episodes of chest pain for which he took several nitroglycerin tablets. This relieves the pain transiently. Toward the end of his dialysis treatment, he began to have chest pain once again, and took either one or two nitroglycerin tablets and had an abrupt drop in his blood pressure. He was transferred to the emergency department and was subsequently admitted to the hospital. At time of my evaluation, he is pain free and offers no new complaints. PAST MEDICAL HISTORY: Is significant for extensive coronary artery disease, peripheral vascular disease for which he is supposed to have an aortobifem graft done at either the [facility] or in [place]. He also has a history of diabetes, hypertension, CHF, and COPD as detailed above. He also has a history of hyperlipidemia and benign prostatic hypertrophy. PAST SURGICAL HISTORY: Is significant for multiple stent placements as detailed above including a left external iliac stenosis which has been stented, left great toe amputation and a left AV fistula. He is allergic to REGULAR INSULIN, PETROLEUM, DIPHENHYDRAMINE, LATEX, SPIRONOLACTONE, RADHA INHIBITORS, CODEINE, CHLORHEXIDINE and CLOPIDOGREL. SOCIAL HISTORY: He has a history of tobacco use but quit approximately a year ago. There is no any history of any recent alcohol use and he is a retired marine gunnery sergeant. FAMILY HISTORY: Noncontributory. REVIEW OF SYSTEMS: Is remarkable for the chest pain as detailed above. However, he currently states he has had no recent fever, chills, nasal congestion, cough, wheezing, nausea, vomiting, diarrhea or significant change in his weight. His medications have been reviewed. PHYSICAL EXAMINATION: Revealed a mildly obese 61-year-old white male who looked a bit older than his stated age. His vital signs showed a blood pressure of 129/71 with a pulse of 76. HEENT examination is remarkable for pale sclerae. Neck is supple without adenopathy, thyromegaly or jugular venous distention. Lungs showed an increased AP diameter bilaterally. His lungs were clear, though somewhat diminished in the bases due to his body habitus. Heart was regular and rhythmical with a soft systolic murmur. Abdomen is soft, without any tenderness, rebound, guarding, masses or hepatosplenomegaly. Extremities did not show any evidence of any clubbing, cyanosis or edema. Skin turgor is good and there is no evidence of any rashes. LABORATORIES: His laboratory examination this morning, his white count is 6.7, hemoglobin 11.2, hematocrit 35.2. His PTT this morning is 48.3. His laboratory today is pending, however, yesterday his sodium is 134, potassium 3.0, chloride of 91, bicarbonate of 27, BUN and creatinine were 35 and 7.1. His glucose is 180. IMPRESSION: 1. Chest pain which is likely due to unstable angina with ongoing coronary artery disease. 2. End-stage renal disease. 3. Diabetic nephropathy. 4. Hypertension with hypertensive heart disease and hypertensive nephrosclerosis. RECOMMENDATION: The patient is to be dialyzed today for 4 hours and 15 minutes on a Revaclear Max dialyzer. His blood flow rate is 415 with a dialysate flow of 800. He will be run on 3 potassium bath with no heparin as he is on heparin drip and will try to take 2 L of fluid off. Once again, I would like to thank you for allowing me to participate in the care of this most pleasant and interesting patient. I will be following him closely with you.
--- NOTE | 2016-04-12 13:45 | NUR ---
Dialysis note: 4 hrs 15 min tx. 2000 ml net UF. CLARICE fistula. Pls see DTR for VS details. Qb 415. No extra heparin given, already on heparin drip. O2 @ 2L via NC on. Tolerated treatment, slept at intervals. Fistula needle sites clotted w/in 10 min. Report given to Anna Farrar RN.
--- NOTE | 2016-04-12 14:01 | NUR ---
[facility] signed
[2016-04-12] MEDS ORDERED: Nitroglycerin 50 mg/250 mL D5W 50,000 MCG in IV Premix 1 EACH IV SCH (14:15)
--- NOTE | 2016-04-12 14:54 | PCM.PNMED ---
Subjective Date of Service Apr 12, 2016 Subjective He did well overnight. However attended dialysis today he developed acute severe substernal chest pain. Some nausea but no diaphoresis. No shortness of breath. ECG indicates lateral ST segment depressions in V3 through V6 and inferior ST elevations. Patient was discussed with Dr. Schaffer of cardiology. She is going to take him for an angiogram. Exam Vital Signs Vital Sign - Last Date Time Temp Pulse Resp B/P Pulse Ox O2 Delivery O2 Flow Rate FiO2 04/12/16 14:37 93 18 125/78 91 Nasal Cannula 6.00 04/12/16 08:03 36.5 Intake and Output 04/11/16 04/11/16 04/12/16 Cumulative From/Thru 15:00 23:00 07:00 04/10/16 12:11 - 04/12/16 05:37 Intake Total 1526 ml 100 ml 1866 ml Output Total 0 ml 0 ml 0 ml Balance 1526 ml 100 ml 1866 ml Intake Oral 1000 ml 100 ml 1340 ml IV Total 526 ml 526 ml Output Urine Total 0 ml 0 ml 0 ml # Bowel Movements 0 Exam Patient appears uncomfortable but has fluent speech. Alert and oriented. Lungs are clear with normal rate and effort. Heart is regular without murmur gallop or rub. Abdomen soft nontender. Extremities are free of edema. Skin is free of rash or lesions. IVs and Medications Medications Reviewed: Medications were reviewed in detail Lab and Diagnostics Result Diagram: 04/12/16 0750 04/12/16 0750 Assessment & Plan 61-year-old male with an extensive cardiac history having ongoing chest pain concerning for acute event his troponin is elevated and his ejection fraction is markedly diminished versus last echocardiogram. Patient has been told by his telephone directory deliverer at [facility] that he needs to be seen nowhere else so understandably he is asking for transfer. I have called the transfer center and there are no beds available they have recommended that we call back in the morning. I have told the patient that we need the name of his telephone directory deliverer so that we can contact that physician directly and perhaps a bed may make itself available based on that physicians recommendations. 1. NSTEMI , POA. The patient is worsened today. He now is showing evidence of an abnormal dynamic ECG. We will restart nitroglycerin. The patient is a very heparinized. He has been seen by cardiology will be taken to the catheterization lab to see if there is a critical occlusion of his RCA and whether or not it is amenable to PCI. 2. End-stage renal disease. POA. The patient was dialyzed today. 3. CAD with a history of PCI 8. POA. Plan is as above. 4. Hypertension, essential. POA. Plan is as above. 5. DM 2. POA. No change to current medical regimen. This is controlled. Proph-DVT patient on a heparin drip Full code Pain Evaluation: Adequate Pain Control Resuscitation Status: CPR: Attempt Resuscitation Time spent 30 minutes Ruy Ford MD Apr 12, 2016 14:54
[2016-04-12] MEDS ORDERED: 0.9% Sodium Chloride 1,000 ML ONE ×2 (15:11→15:37)
[2016-04-12] MEDS ORDERED: Heparin 1,000 Unit/mL 10 mL Inj ONE ×3 (15:11→17:56)
[2016-04-12] MEDS ORDERED: Nitroglycerin 50,000 mcg/250 mL D5W Premix IV ONE (15:11)
[2016-04-12] MEDS ORDERED: Phenylephrine/NS-PF 100 mCg/mL 5 mL Syringe IVPUSH ONE (15:11)
[2016-04-12] MEDS ORDERED: Heparin 1,000 Units/500 mL NS Premix IV ONE (15:11)
[2016-04-12] MEDS ORDERED: Phenylephrine 10,000 mCg/mL Inj ONE (15:11)
[2016-04-12] MEDS ORDERED: Verapamil 2.5 mg/mL 2 mL Inj ONE (15:14)
--- NOTE | 2016-04-12 15:42 | NUR ---
Post Dialysis/Chest pain/EKG changes Patient returned to room post dialysis having severe midsternal chest tightness/squeezing pressure, IV Dilaudid given with min effect. Elastic Assembler and hosp paged and up to assess patient. Stat EKG done and rythmn changes noted. Nitro subling x 1 given and Nitro gtt started. Patient npo and down to labor custodian this afternoon. VSS, tele SR-ST.
[2016-04-12] MEDS ORDERED: fentaNYL-PF 50 mCg/mL 2 mL Inj ONE ×2 (15:43→16:43)
[2016-04-12] MEDS ORDERED: Atropine 1 mg/10 mL (Code) Syringe ONE (16:28)
[2016-04-12] MEDS ORDERED: Ondansetron 2 mg/mL 2 mL Inj ONE (17:30)
[2016-04-12] MEDS ORDERED: Phenylephrine 20 mg/250 mL D5W IV SCH ×2 (17:50)
[2016-04-12] MEDS ORDERED: 0.9% Sodium Chloride 500 ML ONE (17:56)
[2016-04-12] MEDS ORDERED: Propofol 10,000 mCg/mL 100 mL Inj ONE (18:16)
[2016-04-12] MEDS ORDERED: Propofol 10 mg/mL 20 mL Inj ONE (18:16)
[2016-04-12] MEDS ORDERED: Propofol Inj 1,000,000 MCG in IV Premix 1 EACH IV SCH (18:20)
--- NOTE | 2016-04-12 18:26 | PCM.EDPN ---
ED Note Date of Service Apr 12, 2016 Called for SHIELA SIMMS, arrived to the [facility] finding a pulseless apneic patient who was undergoing CPR as directed by Dr. Schaffer. I performed the intubation. Procedures Intubation : Intubation Procedure: Emergent procedure note consent obtained, consent is implicit in patient undergoing a surgical procedure and I was acting in the presumed best interest of this patient. Patient was initially oxygenated with high flow oxygen via bag valve mask. Attempted intubation with direct laryngoscopy unfortunately due to patient positioning and body habitus unable to quickly identify the vocal cords. Subsequently the patient was intubated with a kaleidoscope and direct visualization. Time: 17:45 Procedure Performed by: ED physician Patient Position: Neutral position Blade / ET Tube / Route: [place] scope Procedural Sedation/Analgesia: Analgesia: Other (none) ET Confirmation: Direct visualization, BS equal, End tidal CO2 device Secured / Marked: ET tube device, Tube marked at ___ cm (24) Robbie Casarez DO Apr 12, 2016 18:26
[2016-04-12] MEDS ORDERED: Piperacillin-Tazo 3.375 Gm Inj 3.375 GM in Dextrose 5% Minibag Plus 50 ML IV SCH (18:45)
[2016-04-12] MEDS ORDERED: 0.9% Sodium Chloride 250 ML ONE (18:45)
[2016-04-12] MEDS ORDERED: 0.9% Sodium Chloride 250 ML IV ONE (18:45)
[2016-04-12] MEDS ORDERED: Norepineph 8,000 mCg/250 mL NS 8,000 MCG in IV Premix 1 EACH IV SCH (18:45)
[2016-04-12] MEDS ORDERED: Norepinephrine 8,000 mCg/250 mL NS Premix IV ONE (18:50)
--- NOTE | 2016-04-12 19:08 | DRSVH ---
PROCEDURE: PICC PLACE > 5YRS INDICATIONS: POST CARDIAC ARREST CENTRAL LINE PLACEMENT COMPARISON: [facility], CR, XR CHEST 1VW (PORTABLE), 04/10/2016, 12:43. FINDINGS: Fluoroscopic imaging demonstrates a catheter projecting over the inferior vena cava, tip o f which is not well-seen but is in the vicinity of the inferior cavoatrial junction. A second cathete r projects over the left superior mediastinum.. IMPRESSION: 1. A catheter projects over the vicinity of the inferior cavoatrial junction. 2. Second catheter projecting over the left superior mediastinum, of indeterminant location. Dictated by: Lino Bejarano M.D. on 04/12/2016 at 19:04 Approved by: Lino Bejarano M.D. on 04/12/2016 at 19:06
--- NOTE | 2016-04-12 19:52 | CONS ---
[address] [address] CONSULTATION REPORT PATIENT: WES JETT : 1955 MR#: [id number] ADMIT: 04/10/2016 JOB ID: [id number] DATE OF SERVICE: 04/12/2016 CHIEF COMPLAINT: I was asked by the hospital service to consult on this patient given recent MS with significantly elevated troponin, his desire to go home but now with a recent episode of worsening chest discomfort HISTORY OF PRESENT ILLNESS: The patient is a 61-year-old man with past medical history significant for coronary disease. He has a history of heart catheterization performed in June 2015, which revealed significant coronary disease including distal left main disease. He was referred for coronary bypass grafting and was felt to be too high risk. Therefore he was treated by the [facility] with multiple stents to the left anterior descending extending into the left main artery. Unfortunately, this resulted in near complete occlusion of the circumflex artery and the ramus intermedius, although balloon angioplasty was performed on these vessels. The patient subsequently had a [id number] MS which was treated by [facility] cardiology with a 2.75 x 38 mm Alpine stent to the right coronary artery. The patient ultimately also went down to [facility] where he had to have balloon angioplasty performed of his ramus intermedius and circumflex artery ( with a good angiographic result). I contacted the [facility] today and discussed these findings. The patient had been doing fairly well until he was admitted on April 10, 2016, with chest discomfort. He had an elevated troponin up to 3.21 at admission which has now trended up to 4.99. Cardiology consult was performed by the biomedical technician at his arrival, and the patient decided that he wanted to be transferred to [facility]. He was queued up for transfer to [facility] but there were no beds. The patient has been treated with heparin and nitroglycerin for his pain. As he felt that the transfer to [facility] was not going to occur, he wanted to go home. I spent a fair amount of time reviewing all his other medical records. In October 2015 he had evidence for overall preserved LV systolic function with mild hypokinesis of the basal inferior wall. In November and December 2015, he came in with elevated troponins. Because of his complex anatomy, he was not felt to be a good candidate for coronary intervention or stents and therefore medical management was advised. At that time he had another echocardiogram performed which now showed more prominence of the lateral/inferolateral wall hypokinesis. With this current admission he had an EKGs that showed Q-waves in the inferior leads and other T wave changes in the lateral leads. His echocardiogram at this time showed even worse findings. It showed a significant decrease in LV systolic function now with hypokinesis of the inferior wall. The entire inferior wall was hypokinetic (and this was a new finding). EF is now decreased to approximately 35%. The patient also has a history of PVD with reports of a covered stent placed in the right [employer] after dissection of that vessel. He also has a history of significant disease affecting the left common femoral artery (which was treated by angioplasty). I know that the right radial artery was used for access during his second intervention at [facility]. The patient was planning on possible discharge. He went down for dialysis. Nitroglycerin had been stopped, and then upon return he developed acute chest pain with dynamic EKG changes. Because of this, we put him back on nitroglycerin with only minor improvement in his symptoms. During my first meeting with him, he appears somewhat confused. HIs was also present and appeared very concerned. As I was not sure that she appreciated the gravity of the situation, I discussed his recent MS with the changes in his heart function. I told her that he would unlikely be transferred to [facility] but it would not be safe to go home either. I discussed the severity of his MS with the decrease in heart function. Because of his ECG changes, I felt it necessary to discuss cardiac cath. I told her that given his complex CAD along with recent MIs, I was not certain if there was anything that would be easily treated. However, given his current acute chest pain with associated ECG changes (that were concerning), I discussed taking him to the finishing lab technician. She provided consent that was witnessed. PAST MEDICAL HISTORY/PROBLEM LIST: 1. Coronary disease with history of stents into the left main and LAD with redo balloon angioplasty to the ramus intermedius and circumflex artery with stents also placed in the right coronary artery. The right coronary artery stent was also placed at [facility]. 2. End-stage renal disease. 3. History of CHF. 4. Diabetes mellitus. 5. Hyperlipidemia. 6. Hypertension. MEDICATIONS: At the time of admission included aspirin, atorvastatin, bupropion, carbamazepine, cilostazol, finasteride, furosemide, insulin, metoprolol succinate, isosorbide, Brilinta, although he is now on Effient, and terazosin. ALLERGIES: Multiple, includin. INSULIN. 2. PETROLATUM JELLY. 3. DIPHENHYDRAMINE. 4. LATEX. 5. SOAP. 6. SPIRONOLACTONE. 7. RADHA INHIBITORS. 8. CODEINE. 9. CLOPIDOGREL. Unclear problem. SOCIAL HISTORY: Former smoker. Quit in June 2005. No significant alcohol use. FAMILY HISTORY: Father of lung cancer. Mother with diabetes mellitus. Sister with pulmonary embolism. REVIEW OF SYSTEMS: Overall health: No fevers, chills, night sweats, or weight loss. GI: No problems with ulcers or blood in his stool. : On dialysis. Pulmonary: Some increased dyspnea with his admission. Cardiac: As per HPI. Endocrine: Has diabetes mellitus. Heme: No easy bruising or bleeding. Neuro: No chronic headaches. Derm: Chronic changes of his lower legs. No acute rashes. Musculoskeletal: Low back pain. Ophtho: No vision changes. Psych: No acute issues. VAscular: PVD. Psych: no acute issues. Optho: no acute changes. ENT: no sore throat or difficulty swallowing All other review of systems on a 12-point review of systems are negative. PHYSICAL EXAMINATION: Blood pressure is 125/78, heart rate is 93. Sats are 91% on 6 L. General: He appears uncomfortable although able to speak with me in brief sentences (some dyspnea). Head and neck exam: Normocephalic, atraumatic. Neck is somewhat thick. Difficult to appreciate if JV distention is present. OPtho: no scleral icterus. Heart exam : Tachycardic. Lungs: Coarse breath sounds. Back: Pain with palpation. Abdomen: Soft, nondistended. Extremities: mild edema Skin: With venous stasis changes. Vascular: He has good radial and ulnar pulses on the right wrist. Pedal pulses not palpable Neuro: confused. Psych: appropriate mood. ENT: mucous membranes moist, no erythema. EKG at admission showed Q-waves inferiorly with some subtle ST depressions. After he developed acute pain, he had ST changes in III and aVF, with significant ST depressions noted in the lateral leads. He had minor improvement with nitroglycerin LABORATORIES: Today show a white count 6.7, H and H 11.2, 35.2, platelets a 131,000. Chemistry shows troponins which are in the range of 4-5. CPKs were not sent in these past several days. Sodium 133, potassium 5, chloride and bicarb 89/24, respectively. BUN and creatinine 58 and 9.9. IMAGING: Please refer to echocardiogram image on April 10. Showed no acute issues. IMPRESSION: 1. The patient has multiple medical issues including end-stage renal disease, coronary disease which has been difficult in terms of the success rates with stents, but he had a redo angioplasty done at the [facility] which resulted in a good angiographic result He presented on this with chest discomfort and a non ST elevation MS. He has new wall motion abnormalities affecting the inferior wall (concerning for involvement of the RCA since the previous WMAs were related to the circumflex). He has old wall motion abnormalities affecting the lateral wall. He wanted to go to the [facility], but unfortunately beds were not available and now he has an acute change in his status. I have reviewed his old cath films and echos and also discussed the severity of the situation with his . He is critically ill with significant morbidity and mortality risk. Although I am concerned that there may not be a lesion easily amenable to angioplasty, given his acute chest pain and ECG changes, cath must be considered. His requests that we take him to the finishing lab technician at this time. 2. Will continue his current medications and follow up with him after cardiac catheterization. I spent over two hours of ICU level time reviewing this patient's records in detail, discussing his case with the crushed stone grader at the [facility], and discussing his situation with the hospitalist (Dr. Ford) I believe this man is critically ill with a dramatic change in his clinical status with a drop in EF and significantly elevated troponin - now with acute chest pain and ECG changes. Because of his change in clinic status, I have discussed cardiac cath. We will also have to use a radial access given the PVD affecting his lower extremities. MTDD
--- NOTE | 2016-04-12 20:48 | PROCED ---
[address] [address] PROCEDURE NOTE PATIENT: WES JETT : 1955 MR#: [id number] ADMIT: 04/10/2016 JOB ID: [id number] DATE OF SERVICE: 04/12/2016 POSTOPERATIVE DIAGNOSIS(ES): PREOPERATIVE DIAGNOSIS(ES): SURGEON: Wendy Schaffer MD. PROCEDURES PERFORMED: Peripherally-inserted central catheter line placement. (PICC line) INDICATIONS: This is a 61-year-old man who requires central line access as he is now intubated and sedated. He does only one IV and has difficult access. DESCRIPTION OF PROCEDURE: Informed consent (from the patient's ) had been obtained prior to the cardiac catheterization . The area over the right femoral vein was anesthetized with lidocaine. Using a micropuncture kit, access was easily obtained into the right femoral vein. A micropuncture wire was passed. A micropuncture sheath was passed and ultimately a PICC line was passed into the inferior vena cava. This position was confirmed and all ports were flushed and the line was sutured into place. There were no complications. IMPRESSION: Successful peripherally-inserted central catheter line placement. [facility]
--- NOTE | 2016-04-13 00:11 | NUR ---
Pt at 1933 post code ended. Called organ donation referral line, pt not suitable candidate # [id number]. and Sons at bedside. All belongings sent with family to home. Instructed family to call Nsg Payment Analyst when arrangement is known. Bottom Buffer at bedside for spiritual support. Transported to [facility] at midnight.
--- NOTE | 2016-04-13 01:14 | CS94 ---
[address] [address] DIAGNOSTIC CARDIAC CATHETERIZATION PATIENT: WES JETT : 1955 MR#: [id number] ADMIT: 04/10/2016 JOB ID: [id number] SERVICE DATE: 04/12/2016 PROCEDURES PERFORMED: 1. Coronary angiography. 2. Attempted percutaneous intervention for a mid occluded right coronary artery and area of prior stenting. INDICATIONS: This is a 61-year-old man admitted on April 10, 2016, with chest pain, shortness of breath and elevated troponin. His troponins have been as high as 4.99. He has significant coronary artery disease and has history of multiple stents affecting the left anterior descending and multiple procedures for the circumflex artery, as well as a history of a stent placement in the mid right coronary artery in the setting of [id number] [place]. This was performed in the fall of 2015. He is status post dialysis and now has acute chest pain with dynamic EKG changes (ST elevations inferiorly with signficant ST depressions elsewhere). He presents for urgent assessment by cardiac catheterization. DESCRIPTION OF PROCEDURE: Informed consent was obtained from the patient's and this was witnessed. The patient was taken to the catheterization laboratory. He was somewhat agitated and contaminated the sterile field over his chest (which had to be draped again). Bilateral groins were prepped. However, given known peripheral vascular disease, plans were made for access with a the right radial access. The area over the right radial artery was anesthetized with lidocaine. Using a double wall technique and an Angiocath, access was obtained and a 6-Sammarinese sheath was advanced. A 6-Sammarinese JL 3.5 catheter was advanced over wire. This sheath was used to navigate into the aortic root. This would not cannulate the left coronary artery given its size, so this was exchanged out over an exchange wire and plans were made to take pictures of the right coronary artery. This revealed that the right coronary artery was occluded in the area of previous stenting. Given the acute ECG changes and the patient's urgent status, plans were made for attempted intervention on the RCA. Next, a A 6- Sammarinese multipurpose guide was advanced and this cannulated the vessel adequately. Heparin was given to obtain therapeutic ACTs. A [email or web address] DBA eGifter wire was advanced into the early portion of the vessel without difficulty. However, the wire would only advance so far into an area of prior stenting. Attempts were made with a prowater and whisper wire and another guide as well. OTW balloon was also used to help guide into the stent. The wire would not advance through the stent suggesting a possible issue at the proximal stent that may have led to a chronic dissection (perhaps the cause of the occlusion). No amount of manipulation would allow the wire to pass distal to the area of interest in the mid stented area. As the wire would not pass through the stent , the intervention was abandoned and plans were made to assess the left system with a larger sized JL guide. After removal of the JR4 guide over an exchange wire, Plans were made to cannulate the left coronary with a JL4 catheter. Unfortunately, the patient became agitated, trying to get off the table while moving his legs and arms. He contaminated the right radial site. It was clear that he was not going to tolerate continuation of the procedure at this juncture. As he was moving his arm, there was concern that he might sustain vascular injury if the sheath was left in place. Therefore, this was removed and hemostasis achieved with a TR band. The patient was brought off the table and was allowed to sit up. He started having nausea. Zofran was ordered. While exiting the laborer wharf, the patient suddenly became unresponsive and stopped breathing. The rhythm was asystole. Chest compressions were started and a code was called. ER staff arrived, and the patient was intubated. Prolonged CPR did not restore a rhythm or pulse. Multiple doses of epinephrine were given. At one point a wide complex rhythm was noted without a pulse (one shock was applied). Ultimately, a pulse was obtained, and the patient was placed on a neosynephrine drip with low normal blood pressures. The case was ended and the patient was prepared for transfer to the CCU. For full details of medications during the code, please see code record. FINDINGS: Right coronary artery: This vessel has some ostial disease estimated in the range of 30-40%. In the mid segment, there is an area of previous stenting where the vessel is occluded. As noted, several attempts were made to pass a wire beyond the stented area which was not successful. The wire likely passed into a dissection plane (it is possible that the initial occlusion was related to a chronic edge dissection). Although plans were made to cannulate the left coronary and obtain angiographic views, this was not able to be performed as the patient became quite agitated and contaminated the field; we were unable to continue as it was not felt to be safe. Therefore, we removed all wires and catheters, and achieved hemostasis with a TR band. HEMODYNAMICS: Please see laborer wharf report for full details. For the meds given, please see the laborer wharf report. Heparin was given for anticoagulation, and multiple ACTs were obtained to ensure the patient remained therapeutic throughout the case. IMPRESSION: 1. Evidence for an occluded stent in a patient who has been with an elevated troponin for several days. Given the new inferior wall motion abnormality noted on his admission echo, this is the likely culprit for his new nonstemi and now acute ECG changes 2. Unsuccessful attempts to pass a wire through an area of prior stenting. It is suspected that there may have been an edge dissection that prohibited passage of the wire through the stent. MADONNAD
--- NOTE | 2016-04-13 16:03 | PCM.DC.MEX ---
Discharge Summary Date of Service Apr 12, 2016 Dates of Hospitalization Date of Hospital Admission Apr 10, 2016 at 16:31 Date of Expiration: Apr 12, 2016 Time of Expiration: 20:00 Providers: Admitting Physician: Mayur Cedeño MD Primary Care Physician: Ld Arroyo MD Attending Physician: Mayur Cedeño MD Diagnosis at Time of 1. V. fib arrest deteriorating into asystolic arrest. Prolonged resuscitation effort of approximately 40 minutes. Family in room during most of resuscitation effort. 2. NSTEMI probable RCA distribution Consultations Cardiology Procedures XRay, CTs & MRIs Chest x-ray admitted was negative for any acute process. ECG 12 Lead Patient has a variety of electrocardiograms. They all show a variable degree of intraventricular conduction delay. There is also nonspecific ST segment changes in lateral leads and a question of ST elevation and one inferior lead initially. The electric cardiac enzymes on the fourth and afternoon all reveal marked ST depression in leads V3 4 and 5 and marked elevation in inferior leads. Cardiac Echo Impression Left ventricular wall thickness is mildly increased. Left ventricular ejection fraction is estimated to be 35 +/- 5%. Sever inefrior, inferolateral and posterior hypokinesis. Compared to the prior exam, left ventricular function is significantly decreased. There is mild mitral regurgitation. There is mild aortic stenosis. The right ventricular systolic pressure is estimated at 36 mmHg assuming a right atrial pressure of 8 mm Hg. Invasive Procedures PICC line insertion During resuscitation efforts patient was intubated, right femoral venous line was also placed in the catheterization lab for ongoing postresuscitation care. Brief History 61 year old male with a history of CHF, COPD, CAD, DM, hyperlipidemia, ESRD on hemodialysis, HTN, s/p cardiac stenting 8x presenting to the emergency department from his dialysis appointment due to substernal chest pain that began 2 hours ago. Pain radiates to R arm. Took 2 nitro which did not provide relief. Denies nausea, vomiting, lightheadedness, dizziness, dyspnea, or diaphoresis. Patient tells me that he started having some symptoms last night took a couple nitroglycerin. He took a couple more nitroglycerin this morning before he went to dialysis and felt a little bit better and went to dialysis then during dialysis he developed further symptoms. He states that it is retrosternal does not radiating were but similar to prior episodes. He does have dyspnea with exertion that has worsened in the last day or so. Would like to be transferred to and not admitted to [facility]. Patient was last seen by [facility] cardiology on 02/08/2016, was continued on current medications included Effient and was still awaiting an appointment with you do vascular surgery. Of note patient had a STEMI in June 2015 and transferred to [facility] for CABG however declined as he was thought to be high risk. Patient currently has RALEIGH to left main, bare-metal stent to distal LAD, RALEIGH to mid LAD, RALEIGH to proximal LAD, balloon angioplasty to the ramus intermedius, balloon angioplasty of the left circumflex, RALEIGH to RCA. EKG showed ST segment depression with downsloping in anterior lateral leads which is suggestive of previous MS. Echo showed EF 35% which is significantly decreased from echo done 11/29/2015 EF of 55-60%. Overall left ventricular function significantly decreased from prior study. Patient also has severe inferior, inferior lateral posterior hypokinesis. A. fib. . Hospital Course 61-year-old male with an extensive cardiac history having ongoing chest pain concerning for acute event his troponin is elevated and his ejection fraction is markedly diminished versus last echocardiogram. Patient has been told by his chinese herbalist at [facility] that he needs to be seen nowhere else so understandably he is asking for transfer. I have called the transfer center and there are no beds available they have recommended that we call back in the morning. I have told the patient that we need the name of his chinese herbalist so that we can contact that physician directly and perhaps a bed may make itself available based on that physicians recommendations. 1. NSTEMI , POA. The patient is worsened today. He now is showing evidence of an abnormal dynamic ECG. We will restart nitroglycerin. The patient is a very heparinized. He has been seen by cardiology will be taken to the catheterization lab to see if there is a critical occlusion of his RCA and whether or not it is amenable to PCI. 2. End-stage renal disease. POA. The patient was dialyzed today. 3. CAD with a history of PCI 8. POA. Plan is as above. 4. Hypertension, essential. POA. Plan is as above. 5. DM 2. POA. No change to current medical regimen. This is controlled. Proph-DVT patient on a heparin drip Full code Hospital course. This is an unfortunate, with a known history of chronic systolic heart failure end-stage renal disease as well as severe CAD. The patient has had a previous cardiac stents. The patient was initially admitted through the ER for probable NSTEMI. Negative admit he had requested transfer to [facility] however they were unable to accommodate that due to having no beds. The patient was heparinized and treated medically for an STEMI. Cardiology was consulted on the day of admit. The patient the next morning felt much better had really no chest pain. He notes that his chest pain prior to admit it happened at the end of his dialysis session. The patient is maintained on heparin and nitroglycerin his troponins remained elevated but relatively stable not trending up or down. The patient was taken for inpatient dialysis on the late morning of April 12. He did well until the end of the treatment and then developed acute substernal chest pain. At this point he was seen acutely and an EKG indicated ST depressions which were markedly and appeared to be regional V3 through V6 as well as 2 inferior leads that appeared to have probable ST elevation. Heparin was discontinued and nitroglycerin was resumed. The patient was seen by cardiology. They had reviewed his case with [facility] earlier that morning by telephone. Also is elected to take the patient for urgent coronary angiogram to further delineate and treat his acute coronary syndrome. The patient underwent a right radial artery approach and had a right coronary artery angiogram was detailed in the angiogram note. Bladder could not be passed through the right coronary stent indicating possible thrombosis or other problem. At this point the procedure was terminated and the left main was not studied. The patient was becoming more agitated which led to the premature termination of the procedure. The patient is transferred to a another bed became very agitated and then bradycardia down in a cold blue was called. The patient had evidence of a asystolic arrest and received CPR as well as multiple doses of epinephrine. Slowly he returned to spontaneous circulation. The patient is intubated at that time. It was elected to place a right femoral vein central line in for access and the post resuscitation period. Says done in the coronary catheterization lab by cardiology. The patient had ongoing agitation was attempting to pull his endotracheal tube was given propofol 20 mg IV. This did sedate him. He required one other dose while being transferred up to the ICU. The patient was started on Que-Synephrine drip in the coronary catheterization lab for persistent hypotension. Once inside the intensive care unit and ECG revealed a wide complex rhythm. The patient was having persistent hypotension with systolic blood pressures of approximately 80-84 on maximum doses of Que-Synephrine. At that point in the norepinephrine drip was started. The patient then arrested again. He went into a ventricular fibrillation. The patient had approximately 4 events of ongoing CPR with intermittent doses of epinephrine approximately 6 as well as atropine, 2. The patient had the addition of an epinephrine drip to his pressors and was fluid bolus. He did have ROS see several times for very short period of time with Doppler indicated carotid pulses. Unfortunately the patient deteriorated repeatedly. Ultimately the patient had PEA with intermittent idioventricular rhythms but no pulses. This despite a prolonged course. Bedside ultrasound indicated no convincing contraction of the heart. At this point the resuscitation efforts were terminated. The patient was joined during the resuscitation efforts by his and 2 sons. Exam Test 04/10/16 13:00 04/10/16 20:50 04/11/16 03:00 04/12/16 07:50 Prothrombin Time 11.0sec (8.1-12.5) Prothromb Time International Ratio 1.03ratio Hemoglobin A1c 6.7% (4.8-5.6) Magnesium Level 1.9mg/dL (1.6-2.6) Pro-B-Type Natriuretic Peptide 15628im/mL (0-210) Thyroid Stimulating Hormone (TSH) 1.980uIU/mL (0.450-4.500) Hold [place] Top Tube Received (Received) Total Creatine Kinase 142U/L (21-232) Creatine Kinase MB 10.6ng/mL (0.0-10.4) Creatine Kinase MB % 7.5% (0.0-5.0) Neutrophils (%) (Auto) 71.6% (40-74) Lymphocytes (%) (Auto) 14.4% (14-46) Monocytes (%) (Auto) 10.8% (4-12) Eosinophils (%) (Auto) 2.4% (0-5) Basophils (%) (Auto) 0.4% (0-3) Triglycerides Level 320mg/dL (0-149) Cholesterol Level 94mg/dL (100-199) LDL Cholesterol, Calculated 9.000mg/dL (0-99) VLDL Cholesterol 64.000mg/dL HDL Cholesterol 21mg/dL (>39) Cholesterol/HDL Ratio 4.48 (0.0-4.4) White Blood Count 6.7th/mm3 (3.8-10.1) Red Blood Count 3.54mil/mm3 (4.40-5.80) Hemoglobin 11.2g/dL (13.8-17.2) Hematocrit 35.2% (41.0-50.0) Mean Corpuscular Volume 99.4fL (81-100) Mean Corpuscular Hemoglobin 31.6pg (27.0-35.0) Mean Corpuscular Hemoglobin Concent 31.8% (32.0-37.0) Red Cell Distribution Width 15.6% (12.3-15.4) Platelet Count 131bil/L (150-400) Sodium Level 133mEq/L (134-144) Potassium Level 5.0mEq/L (3.5-5.2) Chloride Level 89mEq/L (97-108) Carbon Dioxide Level 24mmol/L (18-29) Blood Urea Nitrogen 58mg/dL (8-27) Creatinine 9.90mg/dL (0.76-1.27) Estimat Glomerular Filtration Rate 6mL/min (>59) Glucose Level 175mg/dL (60-99) Calcium Level 8.9mg/dL (8.5-10.1) Total Bilirubin 0.3mg/dL (0.0-1.2) Aspartate Amino Transf (AST/SGOT) 25U/L (0-50) Alanine Aminotransferase (ALT/SGPT) 15U/L (0-44) Alkaline Phosphatase 114U/L (25-160) Troponin T 4.14ug/L (0.0-0.011) Total Protein 7.3g/dL (6.4-8.4) Albumin 3.2g/dL (3.4-5.0) Test 04/12/16 14:40 Activated Partial Thromboplast Time 38.7sec (22.8-33.0) Time spent 2 hours Ruy Ford MD Apr 13, 2016 16:03
== END 2016-04-12 19:33 | disposition expired ==
LOC: EDBD 12:10 → SED 12:10 → PCC 16:31 → CCU 04-12 17:52
PROVIDERS: ADMIT Hospitalist; ATTEND Hospitalist
PROC: 5A1935Z Respiratory Ventilation, Less than 24 Consecutive Hours (ICD-10-PCS; principal; 2016-04-12)
PROC: 0BH17EZ Insertion of Endotracheal Airway into Trachea, Via Natural or Artificial Opening (ICD-10-PCS; 2016-04-12)
PROC: 06H033Z Insertion of Infusion Device into Inferior Vena Cava, Percutaneous Approach (ICD-10-PCS; 2016-04-12)
PROC: B2101ZZ Fluoroscopy of Single Coronary Artery using Low Osmolar Contrast (ICD-10-PCS; 2016-04-12)
PROC: 5A12012 Performance of Cardiac Output, Single, Manual (ICD-10-PCS; 2016-04-12)
PROC: 5A1D00Z (ICD-10-PCS; 2016-04-12)
DX: T82.897A Other specified complication of cardiac prosthetic devices, implants and grafts, initial encounter (principal); I21.4 Non-ST elevation (NSTEMI) myocardial infarction; N18.6 End stage renal disease; I13.2 Hypertensive heart and chronic kidney disease with heart failure and with stage 5 chronic kidney disease, or end stage renal disease; I50.20 Unspecified systolic (congestive) heart failure; I25.10 Atherosclerotic heart disease of native coronary artery without angina pectoris; Z99.2 Dependence on renal dialysis; Z95.5 Presence of coronary angioplasty implant and graft; Z87.891 Personal history of nicotine dependence; E11.21 Type 2 diabetes mellitus with diabetic nephropathy; E11.319 Type 2 diabetes mellitus with unspecified diabetic retinopathy without macular edema; E11.40 Type 2 diabetes mellitus with diabetic neuropathy, unspecified; Z79.4 Long term (current) use of insulin; E78.5 Hyperlipidemia, unspecified; J44.9 Chronic obstructive pulmonary disease, unspecified; I73.9 Peripheral vascular disease, unspecified; I48.0 Paroxysmal atrial fibrillation; Z79.82 Long term (current) use of aspirin; I46.2 Cardiac arrest due to underlying cardiac condition; I49.01 Ventricular fibrillation